=== PATIENT | female | born 1980 | race Caucasian/White ===

== ENCOUNTER → 2024-01-03 09:25 | Outpatient (REF) | payer OTHER, SELFPAY | LOC: HWRAD 09:25 | PROVIDERS: ATTENDING PHYSICIAN Nurse Practitioner Family | DX: R19.7 Diarrhea, unspecified (principal); R74.8 Abnormal levels of other serum enzymes; R79.89 Other specified abnormal findings of blood chemistry; R61 Generalized hyperhidrosis; R10.811 Right upper quadrant abdominal tenderness | CPT/HCPCS: 74176 ==

== ENCOUNTER → 2024-11-21 14:51 | Outpatient (REF) | payer OTHER, SELFPAY | LOC: HWRAD 14:51 | PROVIDERS: ATTENDING PHYSICIAN Internal Medicine; FAMILY PHYSICIAN Nurse Practitioner Family | DX: N39.0 Urinary tract infection, site not specified (principal); N20.0 Calculus of kidney | CPT/HCPCS: 76770 ==

== ENCOUNTER 2025-01-14 14:14 | Emergency (ER) | payer OTHER, SELFPAY ==
[2025-01-14 14:17] VITALS: BP 125/82
[2025-01-14 14:37] LABS: % Basophils 0.7 % (0-2); % Eosinophils 0.7 % (0-6); % Lymphocytes 43.4 % (20.5-51.1); % Monocytes 7.9 % (1.7-9.3); % Neutrophils 47.3 % (42.2-75.2); Absolute Lymphocytes 1.9 10^3/uL (1.2-3.4); Absolute Monocytes 0.3 10^3/uL (0.1-0.6); Absolute Neutrophils 2.1 10^3/uL (1.4-6.5); Hematocrit 34.7 % (37.0-47.0); Hemoglobin 12.2 g/dL (12.0-16.0); Mean Corp Hgb Conc. 35.2 g/dL (33.0-37.0); Mean Corpuscular Hgb 33.2 pg (27.0-31.0); Mean Corpuscular Volume 94.6 fL (81.0-99.0); Mean Platelet Volume 9.9 fL (7.4-10.4); Nucleated Red Blood Cells % 0 %; Platelet Count 188 10^3/uL (130-400); Red Blood Cell Count 3.67 10^6/uL (4.20-5.40); Red Cell Dist. Width 12.1 % (11.5-14.5); White Blood Cell Count 4.3 10^3/uL (4.8-10.8)
[2025-01-14 14:44] LABS: HCG, Serum Qualitative Screen Negative
[2025-01-14 14:48] LABS: ALT (SGPT) 19 U/L (0-35); AST (SGOT) 28 U/L (14-36); Albumin 4.4 g/dl (3.5-5.0); Alkaline Phosphatase 43 U/L (38-126); Blood Urea Nitrogen 19 mg/dl (7-17); Calcium 9.7 mg/dl (8.4-10.2); Carbon Dioxide 21 mmol/L (22-30); Chloride 106 mmol/L (98-107); Glucose 88 mg/dl (70-99); Potassium 3.8 mmol/L (3.5-5.1); Sodium 135 mmol/L (135-145); Total Bilirubin 0.7 mg/dl (0.2-1.3); Total Protein 6.6 g/dl (6.3-8.2); eGFR > 60.00
--- NOTE | 2025-01-14 15:19 | ED.GENMED ---
History of Present Illness
<Olga Sandoval PA-C - Last Filed: 01/14/25 18:28>
General
Chief Complaint: Headache
Source: patient
Exam Limitations: none
Time Seen by Provider: 01/14/25 15:14
Nursing documentation reviewed up to this point in time: agreed with
History of Present Illness
History of Present Illness:
This is a 44-year-old female with past medical history of migraines presents emergency department today with concerns of headache for the past 2 days. Patient reports that she started to have a frontal headache 2 days ago. This was associated with
nausea. Started feeling like her typical migraines but then she started to develop severe neck stiffness this morning with associated dizziness and blurry vision. She had a family member drop her off to the emergency department. She denies any
trauma to the eyes. She denies any eye pain. She denies any trauma to the head or neck. She states that she has some diarrhea as well but no vomiting. No abdominal pain. No chest pain or shortness of breath. Patient states that this is much
different than her typical migraines. She states that she has had some chills but she denies any fevers.
Past History
<Olga Sandoval PA-C - Last Filed: 01/14/25 18:28>
Past History
ED Past Medical History: GERD, Psychiatric (bipolar) and Other (migraines)
ED Past Surgical History: Orthopedic and Other (nasal)
Social History
Tobacco: Non-smoker
Alcohol: Occasional
Drug: None
Personal:
Living: with family
Employment: Employed
Family History
Family History: Other (Daughter chronically ill so with mental illness); Negative Early CAD or CAD
Review of Systems
<Olga Sandoval PA-C - Last Filed: 01/14/25 18:28>
Review of Systems
All Other Systems: ROS reviewed and negative except as documented in HPI and ROS
Phy Exam
<Olga Sandoval PA-C - Last Filed: 01/14/25 18:28>
Physical Exam
Physical Exam:
General: Patient is well appearing and in no acute distress; non-toxic
Skin: Warm and dry, no rashes or lesions
Head: Normocephalic, atraumatic
Eyes: Sclera non-icteric. EOMs intact. Peripheral visual leon intact.
Cardiac: Regular rate and rhythm, no murmurs
Peripheral Vascular: No lower extremity swelling or edema
Pulm: Normal respiratory effort, no wheezes, rales, or rhonchi
Musculoskeletal: Limited range of motion into flexion of the neck secondary to pain
Neuro: CN II-XII intact, no focal neurologic deficits.
Psychiatric: Appropriate mood and affect.
Course
<Olga Sandoval PA-C - Last Filed: 01/14/25 18:28>
Orders/Labs/Results
Orders:
Orders
01/14/25 14:19
Test Result ONCE
01/14/25 14:22
Complete Blood Count/With Diff Urgent
Comprehensive Metabolic Panel Urgent
HCG, Serum Qualitative Screen Urgent
01/14/25 15:36
CT Head W/o Iv Contrast Urgent
Comment:
Reason For Exam: headache, neck stiffness, dizziness
0.9% Sodium Chloride 1000 ml [Nss] 1,000 ml IV BOLUS
Diphenhydramine [Benadryl] 12.5 mg IV NOW STA
Metoclopramide [Reglan] 10 mg IV NOW STA
01/14/25 16:28
Ketorolac [Toradol] 15 mg IV NOW STA
01/14/25 17:00
Dexamethasone Sod Phosphate [Decadron] 10 mg IV NOW STA
01/14/25 17:18
Valproate Sodium [Depacon] 500 mg 0.9% Sodium Chloride 50 ml [Nss] 50 ml IV NOW
Abnormal Lab Results
01/14/25
14:22
WBC 4.3 L 10^3/uL
(4.8-10.8)
RBC 3.67 L 10^6/uL
(4.20-5.40)
Hct 34.7 L %
(37.0-47.0)
MCH 33.2 H pg
(27.0-31.0)
Carbon Dioxide 21 L mmol/L
(22-30)
BUN 19 H mg/dl
(7-17)
01/14/25 14:22
01/14/25 14:22
Vital Signs
Initial and Last Documented VS:
Initial Vital Signs
Temp Pulse Resp BP Pulse Ox
98.8 F 78 16 125/82 98
01/14/25 14:17 01/14/25 14:17 01/14/25 14:17 01/14/25 14:17 01/14/25 14:17
Last Documented Vital Signs
Temp Pulse Resp BP Pulse Ox
98.8 F 67 16 95/64 97
01/14/25 14:17 01/14/25 18:12 01/14/25 18:12 01/14/25 18:12 01/14/25 18:12
<Luis Fagan, DO - Last Filed: 01/14/25 15:37>
Orders/Labs/Results
Orders:
Orders
01/14/25 14:19
Test Result ONCE
01/14/25 14:22
Complete Blood Count/With Diff Urgent
Comprehensive Metabolic Panel Urgent
HCG, Serum Qualitative Screen Urgent
01/14/25 15:36
CT Head W/o Iv Contrast Urgent
Comment:
Reason For Exam: headache, neck stiffness, dizziness
0.9% Sodium Chloride 1000 ml [Nss] 1,000 ml IV BOLUS
Diphenhydramine [Benadryl] 12.5 mg IV NOW STA
Metoclopramide [Reglan] 10 mg IV NOW STA
01/14/25 16:28
Ketorolac [Toradol] 15 mg IV NOW STA
01/14/25 17:00
Dexamethasone Sod Phosphate [Decadron] 10 mg IV NOW STA
01/14/25 17:18
Valproate Sodium [Depacon] 500 mg 0.9% Sodium Chloride 50 ml [Nss] 50 ml IV NOW
Abnormal Lab Results
01/14/25
14:22
WBC 4.3 L 10^3/uL
(4.8-10.8)
RBC 3.67 L 10^6/uL
(4.20-5.40)
Hct 34.7 L %
(37.0-47.0)
MCH 33.2 H pg
(27.0-31.0)
Carbon Dioxide 21 L mmol/L
(22-30)
BUN 19 H mg/dl
(7-17)
01/14/25 14:22
01/14/25 14:22
Vital Signs
Initial and Last Documented VS:
Initial Vital Signs
Temp Pulse Resp BP Pulse Ox
98.8 F 78 16 125/82 98
01/14/25 14:17 01/14/25 14:17 01/14/25 14:17 01/14/25 14:17 01/14/25 14:17
Last Documented Vital Signs
Temp Pulse Resp BP Pulse Ox
98.8 F 67 16 95/64 97
01/14/25 14:17 01/14/25 18:12 01/14/25 18:12 01/14/25 18:12 01/14/25 18:12
Uliseslt;Olga Sandoval PA-C - Last Filed: 01/14/25 18:28>
MDM/Problems Addressed
Differential Diagnosis Includes:
ddx include migraine headache, viral meningitis, subarachnoid hemorrhage, MS, space occupying lesion
MDM/Problems Addressed:
44-year-old female presents emergency department today with concerns of neck stiffness and headache, feels much different than her typical migraines. She also complains of some blurry vision. On exam she is well-appearing in no acute distress she
does have limited range of motion of the neck secondary to pain but she has no focal neurologic deficits. She was given Benadryl, Zofran and Toradol here in emergency department. Initially, she felt like this did not improve her symptoms so we did
order a dose of steroids. We also ordered Depacon for acute treatment however by the time this medication was about to be given, patient reports that her head feels much better and she is able to move her neck without pain and is requesting to be
discharged. We did offer lumbar puncture for further evaluation as patient did note she has had viral meningitis in the past. Patient declines lumbar puncture at this time, I think this is reasonable as patient has no fever, no white count.
Patient did mention that she had some bouts of diarrhea at home as well as nausea and decreased appetite, viral syndrome could be contributing to migraine exacerbation in light of normal CAT scan. Patient was given IV fluids. Patient stable for
discharge. Patient states that she will follow-up.
Chronic conditions affecting care:
Migraine disorder, iron deficiency anemia, IBS, bipolar disorder
<Olga Sandoval PA-C - Last Filed: 01/14/25 18:28>
*Pulse Oximetry
Patient hypoxic: no
*Critical Care Note
Total Time (30-74mins, 75-104mins- exclusive of procedures): Not Applicable
Data Reviewed
Review of Other/Old Records Reveals: Records (Reviewed discharge summary from 06/27/2022 patient admitted for intractable migraine)
<Olga Sandoval PA-C - Last Filed: 01/14/25 18:28>
Update Note
Update Note:
6:00 pm-- Just prior to giving dose of Depacon,patient reports an improvement of her symptoms. She can now range her neck. She also notes an improvement in her vision
ED Attending Note
<Olga Sandoval PA-C - Last Filed: 01/14/25 18:28>
-
Portions of this chart may have been created with voice recognition software.� Occasional wrong word or��sound alike� substitutions may have occurred due to the inherent limitations of voice recognition software.
<Luis Fagan DO - Last Filed: 01/14/25 15:37>
ED Attending Note
Patient seen and examined by attending physician: Yes
I performed the substantive portion of visit, reviewed & personally made and approve the management plan that is documented in note by myself or EVA.: Yes
ED Attending Note:
I evaluated the patient at bedside. The patient has had some headache yesterday which worsened again today. She has limited active range of motion into flexion at the neck. She has been having diarrhea. Will give IV fluids.
Discharge Plan
Departure
Patient Disposition: Home (Routine Discharge)
Date of Disposition: 01/14/25
Time of Disposition: 18:03
Patient with high blood pressure during this ER visit?: No
Condition: Good
Discharge Problem:
Migraine headache, Acute viral syndrome
Instructions: Viral gastroenteritis in adults, Migraines (DC)
Prescriptions:
No Action
topiramate 100 MG tablet
100 mg PO DAILY
lamotrigine 100 MG tablet
100 mg PO BID
topiramate 50 mg Tablet
50 mg PO HS
Linzess 290 mcg Capsule
290 mcg PO HS
sumatriptan succinate [Imitrex] 50 mg tablet
50 mg PO ONCE PRN (Reason: migraine headache) Qty: 30 0RF
Rx Instructions:
Take another dose after 2hrs if continues to have migraine.
prochlorperazine maleate [Compazine] 10 mg tablet
10 mg PO Q8H PRN (Reason: nausea and vomiting) Qty: 14 0RF
Referrals:
UNKNOWN - PT DOES,NOT KNOW [Family Provider] -
Activity Restrictions/Additional Instructions:
Your CT of the head was normal.
Please follow up with your neuroophthalmologist/neurologist.
Please continue to monitor your symptoms.
PLEASE RETURN EMERGENCY DEPARTMENT SHOULD YOU DEVELOP ANY ACUTE WORSENING OF YOUR SYMPTOMS, WEAKNESS IN ONE-SIDED BODY VERSUS OTHER, INABILITY TO TOLERATE ORAL INTAKE, LOSS OF VISION, INTRACTABLE NAUSEA OR VOMITING, ABDOMINAL PAIN, FEVERS, OR ANY
OTHER SIGNS OR SYMPTOMS WORRISOME TO YOU.
Interventions
Interventions:
*Risk Screen - Suicide Last Done: 01/14/25 15:54
*General Assessment Last Done: 01/14/25 15:54
*Neglect/Abuse Screening Last Done: 01/14/25 15:54
*ED- Fall Risk Assessment Last Done: 01/14/25 15:54
*ED COVID-19 Vaccine History Last Done: 01/14/25 15:54
*Nursing Disposition Last Done: 01/14/25 18:14
ED- Neurological Assessment Last Done: 01/14/25 15:58
Discharge Date and Time
Discharge Date/Time: 01/14/25 18:14
Print Language: ARABIC
[2025-01-14] MEDS: NSS 1000 IV (15:49)
[2025-01-14] MEDS: REGLAN 10 MG IV (15:50)
[2025-01-14] MEDS: BENADRYL 12.5 MG IV (15:52)
[2025-01-14 15:54] VITALS: BMI 18.7
[2025-01-14 15:55] VITALS: BP 111/79
[2025-01-14] MEDS: TORADOL 15 MG IV (16:48)
[2025-01-14] MEDS: DECADRON 10 MG IV (17:08)
[2025-01-14 18:12] VITALS: BP 95/64
== END 2025-01-14 18:14 | disposition home or self-care (01) ==
LOC: EMR 14:14
PROVIDERS: Emergency Medicine; EMERGENCY PHYSICIAN Emergency Medicine
DX: B34.9 Viral infection, unspecified (principal); G43.909 Migraine, unspecified, not intractable, without status migrainosus; R42 Dizziness and giddiness; M43.6 Torticollis; R11.0 Nausea; K58.0 Irritable bowel syndrome with diarrhea; F31.9 Bipolar disorder, unspecified; D50.9 Iron deficiency anemia, unspecified; F41.9 Anxiety disorder, unspecified; F32.A Depression, unspecified; K21.9 Gastro-esophageal reflux disease without esophagitis; Z88.1 Allergy status to other antibiotic agents; Z88.8 Allergy status to other drugs, medicaments and biological substances
CPT/HCPCS: 99284; 96374; 96375 ×3; 96361; 70450; 80053; 84703; 85025